=== PATIENT | female | born 1960 | race Caucasian/White ===

== ENCOUNTER → 2017-05-12 | Outpatient (CLI) | payer OTHER ==
--- NOTE | 2017-05-12 14:40 | RAD ---
Lumbar spine, 5 views, 05/12/2017: History: Low back pain The lumbar vertebral heights are well-maintained. There is moderate disc space narrowing at L5-S1 with marginal spurring and endplate sclerosis. The other intervertebral disc spaces are well-maintained. There are mild degenerative changes involving the facet joints bilaterally in the lower lumbar spine. There is no evidence of spondylolysis. The paraspinous soft tissues are unremarkable. IMPRESSION: 1. Moderate degenerative disc disease at L5-S1. 2. Mild facet joint arthropathy in the lower lumbar spine. 3. No acute abnormality is detected.
== END | disposition home or self-care (01) ==
LOC: DXRADRC 07:43
PROVIDERS: ATTEND Physician Assistant Medical
DX: M51.37 Other intervertebral disc degeneration, lumbosacral region (principal); M12.88 Other specific arthropathies, not elsewhere classified, other specified site
CPT/HCPCS: 72110